=== PATIENT | male | born 1970 | race Caucasian/White ===

== ENCOUNTER 2020-11-01 08:48 | Emergency (ER) | payer OTHER ==
--- OUTSIDE RECORDS SUMMARY | 2020-11-01 08:51 | XMS REPORT | Continuity of Care Document ---
:1970 Author Organization [facility] Address [address] [place] [address] Care Team Providers Name Role Phone Asked, Pcp Primary Care Physician Unavailable Francisca Ruth MD Attending Clinician Payers Payer Name Policy Type Policy Effective Expiration Source Number Date Date [facility] [id number] [address] CHOICE/CHOICE 00:00:00 Hospital +[id number]/1/2020-Pres entHMO/PPO Problems This patient has no known problems. Allergies, Adverse Reactions, Alerts This patient has no known allergies or adverse reactions. Social History Social Habit Start Date Stop Date Quantity Comments Source Sex Ass[birth year] [facility] 00:00:00 00:00:00 Smoking Status Start Date Stop Date Source Unknown if ever smoked [facility] Medications This patient has no known medications. Procedures Procedure Date / Time Performed Performing Clinician Edmundo e XR CHEST 2 VW 2020-06-05 19:32:00 Rowan Ruth Taoist Murphy solitario Plan of Care Planned Activity Planned Date Details Comments Source Future Scheduled Test COVID-19 VACCINE (1) [facility] [code = COVID-19 VACCINE (1)] Future Scheduled Test Hepatitis C screening [facility] (procedure) [code = 305186171] Future Scheduled Test COLONOSCOPY SCREENING [facility] [code = COLONOSCOPY SCREENING] Future Scheduled Test SHINGLES VACCINES (#1) [facility] [code = SHINGLES VACCINES (#1)] Future Scheduled Test INFLUENZA VACCINE [code [facility] = INFLUENZA VACCINE] Encounters Start End Encounter Admission Attending Care Care Encounter Source Date/Time Date/Time Type Type Clinicians Facility Department ID 2020-06-05 2020-06-05 [facility], 1.2.840.1 [id number] [facility] 14:13:57 23:59:00 Encounter Rowan Espinosa [id number] 429 s t 3.430.2.7 Hospit a .[id number] l .8 2020-06-05 2020-06-[address] [facility] [id number] 00:00:00 00:00:[address]IM [address] 2020-06-05 2020-06-05 Travel 1.2.840.1 [id number] [facility]i 00:00:00 00:00:[address] 3.430.2.7 0.2.7.3.698 Ho spita .[id number] 084.8 l .8 2020-06-05 2020-06-05 Transcribe [facility], 1.2.840.1 [id number] Methodi 00:00:00 00:00:00 Orders Rowan Espinosa [id number] 3.430.2.7 Hospit a .3.144319 l .8 Results Test Description Test Time Test Comments Results Result [facility] e Comments XR Chest 2 Vw 2020-05-18 Examination: XR CHEST Taoist 9 2 VW Clinical History: Ho spital 19:33:52 R07.9 Chest pain unspecified, R07.9 Comparison: None. Technique: Frontal and lateral views of the chest were obtained. Findings:Lungs and pleural surfaces are clear. Cardiomediastinal silhouette and pulmonary vascularity are within normal limits. Bones are intact. Anterior cervical spine fusion. Impression: No active cardiopulmonary disease identified. [id number] Interface, Radiology Results - 06/05/2020 2:37 PM CDT Examination: XR CHEST 2 VWClinical History: R07.9 Chest pain unspecified, R07.9Comparison: None.Technique: Frontal and lateral views of the chest were obtained.Findings:Lung s and pleural surfaces are clear. Cardiomediastinal silhouette and pulmonary vascularity are within normal limits. Bones are intact.Anterior cervical spine fusion.Impression:No active cardiopulmonary disease identified.[id number]
--- NOTE | 2020-11-01 11:57 | EDPHYS ---
Physician Documentation [facility] Name: Laverne Luque Age: 49 yrs Sex: Male : 1970 Arrival Date: 11/01/2020 Time: 08:54 Bed DX1 Private MD: ED Physician Stefan Marie HPI: 11/01 09:47 This 49 yrs old Male presents to ER via Ambulatory with complaints of Covid pm1 test. 09:47 Patient presents to the ER with request for Covid testing. Patient with reported pm1 exposure to Covid positive coworker. Patient with symptoms of generalized fatigue. Patient obtain home self test from [facility] and he tested positive. His work does not accept the home self test and he needs a Covid test from the hospital to verify. Historical: - Allergies: 09:34 No Known Allergies; ss - Immunization history:: Client reports having NOT received the Covid vaccine. - Social history:: Smoking status: Patient reports the use of cigarette tobacco products, smokes one pack cigarettes per day. ROS: 10:10 Eyes: Negative for injury, pain, redness, and discharge, ENT: Negative for injury, pm1 pain, and discharge, Cardiovascular: Negative for chest pain, palpitations, and edema, Respiratory: Negative for shortness of breath, cough, wheezing, and pleuritic chest pain, Abdomen/GI: Negative for abdominal pain, nausea, vomiting, diarrhea, and constipation, Back: Negative for injury and pain, MS/Extremity: Negative for injury and deformity, Skin: Negative for injury, rash, and discoloration, Neuro: Negative for headache, weakness, numbness, tingling, and seizure. 10:10 Constitutional: Positive for malaise, Negative for body aches, fever, poor PO intake. Exam: 10:10 Constitutional: This is a well developed, well nourished patient who is awake, alert, pm1 and in no acute distress. Head/Face: Normocephalic, atraumatic. 10:10 Skin: Warm, dry with normal turgor. Normal color with no rashes, no lesions, and no evidence of cellulitis. MS/ Extremity: Pulses equal, no cyanosis. Neurovascular intact. Full, normal range of motion. 10:10 Eyes: Exam is negative for acute changes, Extraocular movements: no acute changes, Conjunctiva: normal, no injection. 10:10 ENT: Exam is negative for acute changes, Mouth: Lips: normal, Oral mucosa: normal, pink and intact, moist. 10:10 Cardiovascular: Exam negative for acute changes, Rate: normal, Rhythm: regular, Pulses: no pulse deficits are appreciated. 10:10 Respiratory: Exam negative for acute changes, respiratory distress, shortness of breath. 10:10 Neuro: Exam negative for acute changes, Orientation: is normal, Motor: is normal, moves all fours, Gait: is steady, at a normal pace, without difficulty. Vital Signs: 09:33 Resp 18; Temp 97.0; Weight 129.27 kg; Height 6 ft. 0 in. (182.88 cm); Pain 0/10; ss 09:35 BP 122 / 85; Pulse 85; Pulse Ox 96% ; ss 09:33 Body Mass Index 38.65 (129.27 kg, 182.88 cm) ss MDM: 09:40 Patient medically screened. pm1 10:06 Data reviewed: vital signs. Data interpreted: Pulse oximetry: on room air is 96 %. pm1 Interpretation: normal. 11:55 Counseling: I had a detailed discussion with the patient and/or guardian regarding: the pm1 historical points, exam findings, and any diagnostic results supporting the discharge/admit diagnosis, lab results, to return to the emergency department if symptoms worsen or persist or if there are any questions or concerns that arise at home. 11/01 09:46 Order name: COVID-19 : Document "Date of Symptom Onset" if Symptomatic. pm1 11/01 11:42 Order name: SARS-COV-2 RT PCR; Complete Time: 11:43 EDMS Administered Medications: No medications were administered Disposition: 18:37 Co-signature as Attending Physician, Stefan Marie MD I agree with the assessment and tw4 plan of care. Disposition Summary: 11/01/20 11:57 Discharge Ordered Location: Home pm1 Problem: new pm1 Symptoms: have improved pm1 Condition: Stable pm1 Diagnosis - Encounter for screening, unspecified - Covid test pm1 Followup: pm1 - With: Emergency Department - When: As needed - Reason: Worsening of condition Followup: pm1 - With: Private Physician - When: 2 - 3 days - Reason: Recheck today's complaints, Continuance of care, Re-evaluation by your physician Forms: - Medication Reconciliation Form pm1 - Thank You Letter pm1 - Antibiotic Education pm1 - Prescription Opioid Use pm1 Signatures: Dispatcher [employer] EDXiomara Mcgee RN RN ss Edward Nieto, TELEVISION ENGINEERING TEACHER TELEVISION ENGINEERING TEACHER pm1 Stefan Marie MD MD tw4 Corrections: (The following items were deleted from the chart) 10:17 09:46 CORONAVIRUS ordered. EDNC EDNC
--- NOTE | 2020-11-01 11:57 | ER ---
Nurse's Notes [facility] Name: Laverne Luque Age: 49 yrs Sex: Male : 1970 Arrival Date: 11/01/2020 Time: 08:54 Bed DX1 Private MD: Diagnosis: Encounter for screening, unspecified-Covid test Presentation: 11/01 09:33 Chief complaint: Patient states: Diagnosed with COVID 19 yesterday at [facility], but states ss he needs a verification test for his work. Coronavirus screen: Client denies travel out of the [place] in the last 14 days. Ebola Screen: Patient denies exposure to infectious person. Patient denies travel to an Ebola-affected area in the 21 days before illness onset. Initial Sepsis Screen: Does the patient meet any 2 criteria? No. Patient's initial sepsis screen is negative. Does the patient have a suspected source of infection? No. Patient's initial sepsis screen is negative. Risk Assessment: Do you want to hurt yourself or someone else? Patient reports no desire to harm self or others. Onset of symptoms is unknown. 09:33 Method Of Arrival: Ambulatory ss 09:33 Acuity: BRUCE 5 ss Historical: - Allergies: 09:34 No Known Allergies; ss - Immunization history:: Client reports having NOT received the Covid vaccine. - Social history:: Smoking status: Patient reports the use of cigarette tobacco products, smokes one pack cigarettes per day. Screenin:33 Abuse screen: Denies threats or abuse. Denies injuries from another. Nutritional ss screening: No deficits noted. Tuberculosis screening: Never had TB. Fall Risk None identified. Assessment: 09:33 General: Appears in no apparent distress. comfortable, Behavior is calm, cooperative. ss Pain: Denies pain. Neuro: Level of Consciousness is awake, alert, obeys commands, Oriented to person, place, time, situation, Junior Legal Secretary are equal bilaterally Moves all extremities. Full function Speech is normal, Facial symmetry appears normal, Pupils are PERRLA. Cardiovascular: Capillary refill < 3 seconds is brisk in bilateral fingers. Respiratory: Airway is patent Respiratory effort is even, unlabored, Respiratory pattern is regular, symmetrical, Denies cough, shortness of breath pain with respiration, pain with cough, pain with movement. GI: Patient currently denies abdominal pain, diarrhea, nausea, vomiting. EENT: Oral mucosa is moist. Throat is clear. Derm: Skin is pink, warm \\T\\ dry. normal. Vital Signs: 09:33 Resp 18; Temp 97.0; Weight 129.27 kg; Height 6 ft. 0 in. (182.88 cm); Pain 0/10; ss 09:35 BP 122 / 85; Pulse 85; Pulse Ox 96% ; ss 09:33 Body Mass Index 38.65 (129.27 kg, 182.88 cm) ED Course: 08:54 Patient arrived in ED. mr 09:33 Patient has correct armband on for positive identification. ss 09:34 Triage completed. ss 09:34 Arm band placed on right wrist. 09:40 Edward Nieto NP is PHCP. pm1 09:40 Stefan Marie MD is Attending Physician. pm1 09:54 COVID-19 : Document "Date of Symptom Onset" if Symptomatic. Sent. [facility] 09:55 COVID swab sent to lab. [facility] 12:11 Xiomara Rodriguez RN is Primary Nurse. 12:11 No provider procedures requiring assistance completed. Patient did not have IV access ss during this emergency room visit. Administered Medications: No medications were administered Outcome: 11:57 Discharge ordered by MD. pm1 12:11 Discharged to home ambulatory. 12:11 Condition: good 12:11 Discharge instructions given to patient, Instructed on discharge instructions, follow up and referral plans. Demonstrated understanding of instructions, follow-up care. 12:13 Patient left the ED. Signatures: Jacy Bradley mr Xiomara Rodriguez RN RN Edward Nieto NP SERVICE OPERATIONS MANAGER pm1 Grace Levine [facility] Corrections: (The following items were deleted from the chart) 10:17 09:55 CORONAVIRUS drawn and sent. [facility] EDMS
[2020-11-01 12:17] VITALS: TEMP 97
[2020-11-01 12:21] VITALS: BP 122/85; O2SAT 96
== END 2020-11-01 12:13 | disposition home or self-care (01) ==
LOC: ER 08:48
DX: Z20.822 Contact with and (suspected) exposure to COVID-19 (principal); F17.210 Nicotine dependence, cigarettes, uncomplicated
CPT/HCPCS: 99283; U0003